=== PATIENT | female | born 1990 | race Caucasian/White ===

== ENCOUNTER → 2024-10-03 09:00 | Outpatient (REF) | payer BC, SELFPAY | LOC: PNTC 09:00 | DX: Z34.91 Encounter for supervision of normal pregnancy, unspecified, first trimester (principal) | CPT/HCPCS: 76801 ==

== ENCOUNTER → 2024-12-26 16:45 | Outpatient (REF) | payer BC, SELFPAY | LOC: PNTC 16:45 | DX: Z34.92 Encounter for supervision of normal pregnancy, unspecified, second trimester (principal) | CPT/HCPCS: 76805 ==